=== PATIENT | female | born 1955 | race Caucasian/White ===

== ENCOUNTER 2024-01-18 10:23 | Day surgery (SDC) | payer MEDICARE, OTHER ==
[2024-01-18] VITALS (123 sets, daily range): BP systolic 102–163; BP diastolic 70–93; PULSE 59–84; TEMP 97; O2SAT 82–95
[~2024-01-18] VITALS: Ht 152.5 cm; Wt 100.2 kg
[~2024-01-18 10:23] MED LIST: AMOXICILLIN 8751 TAB PO; VENTOLIN0.09 MG IH; ZYRTEC-D 5 MG-11 TER PO
--- NOTE | 2024-01-18 10:30 | NUR ---
Patient arrived via ambulatory to room 14.Family at bedside.
[2024-01-18] MEDS ORDERED: 1/2 NS 1,000 ML IV SCH (11:00)
[2024-01-18 11:27] LABS: HEMATOCRIT 45.4 % (37.0-47.0); HEMOGLOBIN 14.7 g/dl (12.5-16.0); MEAN CELL VOLUME 93 fl (80.0-100.0); MEAN CORPUSCULAR HEMOGLOBIN 30 pg (27-31); MEAN CORPUSCULAR HGB CONC 32 g/dl (33.0-37.0); MEAN PLATELET VOLUME 10.1 fl (7.4-10.4); PLATELET COUNT 245 K/mm3 (130-400); RED BLOOD COUNT 4.88 M/mm3 (4.10-5.30); REDCELL DISTRIBUTION WIDTH-CV 15.2 % (11.5-14.5)
[2024-01-18] MEDS ORDERED: SPIRIVA RESPIMAT4 GM IH (11:40)
[2024-01-18] MEDS ORDERED: ZYRTEC 10MG10 MG PO (11:40)
[2024-01-18] MEDS ORDERED: SYNTHROID0.125 MG/T PO (11:41)
[2024-01-18] MEDS ORDERED: LEXAPRO20 MG PO (11:41)
[2024-01-18] MEDS ORDERED: TRIAM OI 0.1 80 TOP (11:42)
[2024-01-18] MEDS ORDERED: ASPIRIN 32325 MG/TAB PO (11:43)
[2024-01-18] MEDS ORDERED: PROVENTIL0.09 MG/A1 IH (11:43)
[2024-01-18] MEDS ORDERED: ALEVE 220MG220 MG PO (11:44)
--- NOTE | 2024-01-18 11:50 | NUR ---
Patient to procedure,report to [facility].
[2024-01-18] MEDS ORDERED: Heparin 1,000 UNITS/ML 10 ML Multi-Dose VIAL IV SCH (12:02)
[2024-01-18] MEDS ORDERED: Nitroglycerin 100 MCG/ML (Cath Lab) 10 ML VIAL IA SCH (12:04)
[2024-01-18] MEDS ORDERED: Verapamil 2.5 MG/ML 2 ML VIAL IA SCH (12:04)
[2024-01-18 12:08] LABS: CALCIUM 9.4 mg/dL (8.4-10.2); CREATININE, serum 0.7 mg/dL (0.57-1.11); INR 0.9 (0.8-3.0); POTASSIUM 4.1 mEq/L (3.5-4.5); PROTHROMBIN TIME 9.9 SECONDS (9.7-12.8)
[2024-01-18 12:09] LABS: PARTIAL THROMBOPLASTIN TIME 31.8 SECONDS (26.0-37.0)
--- NOTE | 2024-01-18 12:24 | NUR ---
See [facility]ge report for procedural sedation/notes
[2024-01-18] MEDS ORDERED: Iohexol 350 - 100 ML VIAL INCOR ONE (12:36)
[2024-01-18] MEDS ORDERED: Midazolam 2 MG/2 ML VIAL IV SCH (12:36)
[2024-01-18] MEDS ORDERED: fentaNYL 50 MCG/ML 2 ML VIAL IV SCH (12:37)
--- NOTE | 2024-01-18 13:02 | NUR ---
Patient returned from procedure.Report from [facility].Patient returned with right radial band in place,inflated.No bleeding observed at right radial site.Patient denies pain at this time.See flowsheet for vitals.
--- NOTE | 2024-01-18 17:00 | NUR ---
Discharge instructions given to pt.Pt verbalizes understanding.Dressing to right radial site observed clean,dry,intact and soft.Pt escorted out via wheelchair by this nurse.
== END 2024-01-18 18:16 ==
LOC: COL.CAR 10:23
PROVIDERS: Internal Medicine Cardiovascular Disease
DX: I25.10 Atherosclerotic heart disease of native coronary artery without angina pectoris (principal); F17.200 Nicotine dependence, unspecified, uncomplicated
CPT/HCPCS: J1644; J2250; J3010; Q9967